=== PATIENT | female | born 1995 | race Caucasian/White ===

== ENCOUNTER 2017-02-05 17:37 | Emergency (ER) | payer SELFPAY ==
[2017-02-05 17:59] VITALS: BP 120/79
--- NOTE | 2017-02-05 18:02 | Emergency Department Report ---
Chief Complaint: Urogenital-Female Stated Complaint: TREATMENT FOR BV Time Seen by Provider: 02/05/17 17:59 - HPI History of Present Illness: PT states she is coming off her cycle but she is having vaginal discharge - ROS Review of Systems: + vaginal bleeding + vaginal discharge - Exam Vital Signs: Vital Signs 02/05/17 17:55 Temperature 98.4 F Pulse Rate 84 Respiratory 18 Rate Blood Pressure 120/79 O2 Sat by Pulse 100 Oximetry Physical Exam: pt looks well, non toxic. no acute distress noted gcs 15 MSE screening note: Focused history and physical exam performed. Due to findings the following was ordered: labs ED Disposition for MSE Condition: Stable
--- NOTE | 2017-02-05 20:51 | Emergency Department Report ---
ED Female HPI - General Chief complaint: Urogenital-Female Stated complaint: TREATMENT FOR BV Time Seen by Provider: 02/05/17 17:59 Source: patient Mode of arrival: Ambulatory Limitations: No Limitations - History of Present Illness Initial comments: Patient reports vaginal discharge that started two days ago. LMP 01/29/17 Complaint: vaginal discharge Onset/Timin -: days(s) Location: suprapubic Radiation: non-radiating Severity scale (0 -10): 0 Quality: other (none) Consistency: constant Improves with: none Worsens with: none Are you Now?: No Last Menstrual Period: 01/29/17 EDC: 11/05/17 Associated Symptoms: vaginal discharge. denies: vaginal bleeding, abdominal pain, nausea/vomiting, fever/chills, headaches, loss of appetite, dysuria, hematuria, rash, seizure, shortness of breath, syncope, weakness - Related Data Sexually active: Yes (with females) Previous Rx's Medication Instructions Recorded Last Taken Type metroNIDAZOLE [Flagyl] 500 mg PO Q12HR #14 tab 02/05/17 Unknown Rx Allergies Allergy/AdvReac Type Severity Reaction Status Date / Time No Known Allergies Allergy Unverified 02/05/17 17:54 ED Review of Systems ROS: Stated complaint: TREATMENT FOR BV Other details as noted in HPI Constitutional: denies: chills, diaphoresis, fever, malaise, weakness Respiratory: denies: cough, orthopnea, shortness of breath, SOB with exertion, SOB at rest, stridor, wheezing Cardiovascular: denies: chest pain, palpitations, dyspnea on exertion, orthopnea , edema, syncope, paroxysmal nocturnal dyspnea Gastrointestinal: denies: abdominal pain, nausea, vomiting, diarrhea, constipation, hematemesis, hematochezia Genitourinary: discharge (vaginal). denies: urgency, dysuria, frequency, hematuria Musculoskeletal: denies: back pain, joint swelling, arthralgia Skin: denies: rash, lesions, change in color, change in hair/nails, pruritus Neurological: denies: headache, weakness, numbness, paresthesias, confusion Psychiatric: denies: anxiety, depression Hematological/Lymphatic: denies: easy bleeding, easy bruising, swollen glands ED Past Medical Hx - Past Medical History Previous Medical History?: No - Surgical History Past Surgical History?: No - Social History Smoking Status: Never Smoker Substance Use Type: Alcohol - Medications Home Medications: Home Medications Medication Instructions Recorded Confirmed Last Taken Type metroNIDAZOLE [Flagyl] 500 mg PO Q12HR #14 tab 02/05/17 Unknown Rx ED Physical Exam - General Limitations: No Limitations General appearance: alert, in no apparent distress - Head Head exam: Present: atraumatic - Eye Eye exam: Present: normal appearance - ENT ENT exam: Present: normal exam, mucous membranes moist. Absent: mucous membranes dry - Neck Neck exam: Present: normal inspection, full ROM. Absent: tenderness, meningismus, lymphadenopathy, thyromegaly - Respiratory Respiratory exam: Present: normal lung sounds bilaterally. Absent: respiratory distress, wheezes, rales, rhonchi, stridor, chest wall tenderness, accessory muscle use, decreased breath sounds, prolonged expiratory - Cardiovascular Cardiovascular Exam: Present: regular rate, normal rhythm, normal heart sounds. Absent: systolic murmur, diastolic murmur, rubs, gallop - GI/Abdominal GI/Abdominal exam: Present: soft, normal bowel sounds. Absent: distended, tenderness, guarding, rebound, rigid - External exam: Present: normal external exam. Absent: erythema, swelling, lesions, lacerations, ecchymosis, bleeding Speculum exam: Present: vaginal discharge (creamy). Absent: erythema, cervical discharge, vaginal bleeding, foreign body, tissue, laceration Bi-manual exam: Present: normal bi-manual exam. Absent: cervical motion tendernes, adnexal tenderness, adnexal mass, uterine enlargement, uterine tenderness - Extremities Exam Extremities exam: Present: normal inspection, full ROM, normal capillary refill. Absent: tenderness, pedal edema, joint swelling - Back Exam Back exam: Present: normal inspection, full ROM. Absent: CVA tenderness (R), CVA tenderness (L) - Neurological Exam Neurological exam: Present: alert, oriented X3, CN II-XII intact, normal gait, reflexes normal. Absent: motor sensory deficit - Psychiatric Psychiatric exam: Present: normal affect, normal mood. Absent: depressed, agitated - Skin Skin exam: Present: warm, dry, intact, normal color. Absent: rash ED Course Vital Signs 02/05/17 17:55 Temperature 98.4 F Pulse Rate 84 Respiratory 18 Rate Blood Pressure 120/79 O2 Sat by Pulse 100 Oximetry ED Medical Decision Making - Lab Data Vital Signs 02/05/17 17:55 Temperature 98.4 F Pulse Rate 84 Respiratory 18 Rate Blood Pressure 120/79 O2 Sat by Pulse 100 Oximetry Microbiology 02/05/17 20:45 Wet Prep - Final Vaginal No Yeast, Trichomoniasis or Clue Cells Seen - Medical Decision Making During the course of ED, pelvic examination and laboratory studies were ordered. Patient was sent home with prescription for Flagyl, instructed to follow up with the selective referral given at discharge, she verbalized understanding - Differential Diagnosis Bacteral Vaginosis, UTI, STI Critical care attestation.: If time is entered above; I have spent that time in minutes in the direct care of this critically ill patient, excluding procedure time. ED Disposition Clinical Impression: Sexually transmitted disease (STD) Disposition: - TO HOME OR SELFCARE Is pt being admited?: No Does the pt Need Aspirin: No Condition: Stable Instructions: Sexually Transmitted Diseases (ED), Safe Sex (ED) Additional Instructions: Take medication as directed. Follow up with the selective referral given at discharge Prescriptions: metroNIDAZOLE [Flagyl] 500 mg PO Q12HR #14 tab Referrals: PRIMARY CARE, [Primary Care Provider] - 3-5 Days ADITHYA EATON CNM [Advanced Practice Nurse] - 3-5 Days SHREYA CHIN DO [Staff Physician] - 3-5 Days CIELO HICKS CNM [Advanced Practice Nurse] - 3-5 Days Time of Disposition: 22:39
[2017-02-05 21:32] LABS: Bilirubin,Urine NEG (Negative); Blood,Urine NEG (Negative); Ketones,Urine NEG (Negative); Leukocyte Esterase,Urine NEG (Negative); Mucus,Urine FEW /HPF; Nitrite,Urine NEG (Negative); Protein,Urine <15 mg/dL mg/dL (Negative); Urobilinogen,Urine < 2.0 mg/dL (<2.0); WBC,Urine < 1.0 /HPF (0.0-6.0)
== END 2017-02-05 23:47 | disposition home or self-care (01) ==
LOC: ED 17:37
DX: A63.8 Other specified predominantly sexually transmitted diseases (principal)
CPT/HCPCS: 81001; 81025; 87210; 87591; 99284